=== PATIENT | female | born 1985 | race Caucasian/White ===

== ENCOUNTER 2020-03-18 10:13 | Emergency (ER) | payer MEDICAID, OTHER ==
[~2020-03-18] VITALS: Ht 162 cm; Wt 63.5 kg
--- NOTE | 2020-03-18 10:43 | ED General ---
General Stated Complaint: COUGH/HEADACHE/RUNNY NOSE/CHEST TIGHTNESS Source of Information: Patient Exam Limitations: No Limitations History of Present Illness Date Seen by Provider: Mar 18, 2020 Time Seen by Provider: 10:40 Initial Comments To ER with 3 weeks of cough, headache, rhinorrhea, intermittent chest tightness. Does not smoke cigarettes, occasionally smokes marijuana occasionally. No pre- existing lung disease no hypertension or diabetes. Additionally, she was sitting in the car with her uncle 3 days ago and he mentioned that he had symptoms, he subsequently got tested and was positive for Covid 19. Timing/Duration: Other (3 weeks) Severity: Moderate Associated Systoms: Denies Symptoms Allergies and Home Medications Patient Home Medication List Home Medication List Reviewed: Yes Review of Systems Review of Systems Constitutional: see HPI EENTM: see HPI, nose congestion, throat pain Respiratory: see HPI, cough Cardiovascular: no symptoms reported Genitourinary: no symptoms reported Musculoskeletal: no symptoms reported Skin: no symptoms reported Psychiatric/Neurological: See HPI, Headache Hematologic/Lymphatic: No Symptoms Reported Past [id number] Hx Patient Social History Recent Foreign Travel: No Contact w/Someone Who Travel: No Physical Exam Vital Signs Vital Signs - First Documented 03/18/20 10:35 Temp 36.0 Pulse 75 Resp 16 B/P (MAP) 135/80 (98) Pulse Ox 98 Capillary Refill : Height, Weight, BMI Height: '" Weight: lbs. oz. kg; BMI Method: General Appearance: No Apparent Distress, WD/WN, Other (normal respiratory rate of 16-22. Oxygen saturation 98% on room air. Heart rate 70s. Blood pressure normal. Afebrile.) Eyes: Bilateral Eye Normal Inspection, Bilateral Eye PERRL, Bilateral Eye EOMI HEENT: PERRL/EOMI Neck: Full Range of Motion, Normal Inspection Respiratory: Chest Non Tender, Lungs Clear, Normal Breath Sounds, No Accessory Muscle Use, No Respiratory Distress Cardiovascular: Regular Rate, Rhythm, Normal Peripheral Pulses Gastrointestinal: Non Tender, Soft Extremity: Normal Capillary Refill, Normal Inspection Neurologic/Psychiatric: Alert, Oriented x3 Skin: Normal Color, Warm/Dry Progress/Results/Core Measures Suspected Sepsis SIRS Temperature: Pulse: Respiratory Rate: Blood Pressure / Mean: Results/Orders Lab Results Laboratory Tests Test 03/18/20 10:40 Range/Units Coronavirus 2019 ([facility]) Positive H Negative My Orders Orders - PEDRO PUENTE APRN Covid 19 Inhouse Test (03/18/20 10:24) Coronavirus Sars-Cov-2 So 2019 (03/18/20 10:24) Influenza A And B Antigens (03/18/20 10:24) Chest 1 View, Ap/Pa Only (03/18/20 10:24) Vital Signs/I&O 03/18/20 10:35 Temp 36.0 Pulse 75 Resp 16 B/P (MAP) 135/80 (98) Pulse Ox 98 Capillary Refill : Departure Impression Primary Impression: COVID-19 Disposition: 01 HOME, SELF-CARE Condition: Stable Departure-Patient Inst. Decision time for Depature: 10:42 Referrals: NO,LOCAL PHYSICIAN (PCP/Family) Primary Care Physician Patient Instructions: COVID19 Add. Discharge Instructions: 1. Return to ER for any concerns. Follow-up with your doctor this week. They may want to do a telemetry health visit with you over the phone. Return to ER for any worsening symptoms. Work/School Note: Work Release Form Date Seen in the Emergency Department: Mar 18, 2020 Return to Work: Mar 18, 2020 Restrictions: Need Release from Doctor PEDRO PUENTE APRN Mar 18, 2020 10:43
[2020-03-18 11:07] VITALS: BP 125/80
--- NOTE | 2020-03-18 11:14 | Diagnostic Imaging Report ---
INDICATION: Cough. EXAMINATION: Chest 03/18/2020. FINDINGS: The cardiomediastinal silhouette is unremarkable. The pulmonary vasculature is within normal limits. The lungs and pleural spaces are clear. IMPRESSION: No evidence of an acute cardiopulmonary process. Dictated by: Dictated on workstation # [id number]
== END 2020-03-18 11:07 | disposition home or self-care (01) ==
LOC: ER 10:15
DX: U07.1 COVID-19 (principal)
CPT/HCPCS: 71045; 87804; 99283; U0002; 87635